=== PATIENT | female | born 1980 | race Caucasian/White ===

== ENCOUNTER 2019-11-08 07:54 | Day surgery (SDC) | payer OTHER ==
[~2019-11-08] VITALS: Ht 177.8 cm; Wt 250.0 kg
[~2019-11-08 07:54] MED LIST: CYAN50LO PO; DIAZ5TAB PO; HYDR200T72 PO; VIT D PO
[2019-11-08 08:35] VITALS: BP 141/82
[2019-11-08] MEDS ORDERED: LACTATED RINGERS 1,000 ML IV SCH (10:00)
[2019-11-08] MEDS ORDERED: OXYTOCIN 10 UNITS/ML, 1ML ONE (13:22)
[2019-11-08] MEDS ORDERED: MISOPROSTOL 200 MCG TABLET ONE (13:23)
[2019-11-08] MEDS ORDERED: METHYLERGONOVINE 0.2 MG/ML IM ONE (13:23)
[2019-11-08] MEDS ORDERED: SILVER NITRATE STICK TP ONE (13:24)
[2019-11-08] MEDS ORDERED: FENTANYL PF 100 MCG/2ML ONE (13:40)
[2019-11-08] MEDS ORDERED: MIDAZOLAM 1 MG/ML, 2ML ONE (13:40)
[2019-11-08] MEDS ORDERED: HYDROmorphone 2 MG/ML, 1ML IVPush PRN (14:30)
[2019-11-08] MEDS ORDERED: ACETAMINOPHEN 325 MG TABLET PO PRN (14:30)
[2019-11-08] MEDS ORDERED: DIAZEPAM 5 MG/ML, 2ML IVPush PRN (14:30)
[2019-11-08] MEDS ORDERED: PROMETHAZINE 25 MG/ML, 1ML IV PRN (14:30)
[2019-11-08] MEDS ORDERED: LABETALOL 5MG/ML, 20ML IV PRN (14:30)
[2019-11-08] MEDS ORDERED: hydrALAzine 20 MG/ML, 1ML IV PRN (14:30)
[2019-11-08] MEDS ORDERED: FENTANYL PF 100 MCG/2ML IV PRN (14:30)
[2019-11-08] MEDS ORDERED: ALBUTEROL SULFATE 2.5 MG/3 ML NPPB PRN (14:30)
[2019-11-08] MEDS ORDERED: KETOROLAC 30 MG/1 ML IV PRN ×2 (14:30→16:00)
[2019-11-08] MEDS ORDERED: MEPERIDINE/PF 25MG/0.5ML IVPush PRN (14:30)
[2019-11-08] MEDS ORDERED: OXYcodone 5 MG/5 ML ORAL.SOL UDC PO PRN (14:30)
[2019-11-08] MEDS ORDERED: ROCURONIUM 10MG/ML,5ML ONE (14:37)
[2019-11-08] MEDS ORDERED: ONDANSETRON 2MG/ML, 2ML ONE (14:37)
[2019-11-08] MEDS ORDERED: SUCCINYLCHOLINE 20 MG/ML, 10ML ONE (14:37)
[2019-11-08] MEDS ORDERED: GLYCOPYRROLATE 0.2MG/1ML, 5ML ONE (14:37)
[2019-11-08] MEDS ORDERED: PROPOFOL 10 MG/ML, 20ML ONE (14:37)
[2019-11-08] MEDS ORDERED: DEXAMETHASONE 4 MG/ML, 1ML ONE (14:37)
[2019-11-08] MEDS ORDERED: NEOSTIGMINE 1 MG/ML, 10ML ONE (14:37)
[2019-11-08] MEDS ORDERED: CEFAZOLIN 1,000 MG ONE (14:37)
[2019-11-08 15:35] VITALS: BP 110/78
[2019-11-08] MEDS ORDERED: PROMETHAZINE 25 MG SUPP PR ONE (16:00)
[2019-11-08] MEDS ORDERED: HYDROmorphone 1 MG/ML, 1ML INJ IV PRN (16:00)
[2019-11-08] MEDS ORDERED: OXYcodone/APAP 5/325MG TABLET PO PRN (16:00)
== END 2019-11-08 16:38 | disposition home or self-care (01) ==
LOC: OR 07:54 → 4NE 08:12 → UNDOADMIN 08:12 → UNDODISIN 16:38 → OR 16:38
PROVIDERS: ATTEND Obstetrics & Gynecology
DX: O03.4 Incomplete spontaneous abortion without complication (principal); Z11.59 Encounter for screening for other viral diseases; M32.9 Systemic lupus erythematosus, unspecified; F32.9 Major depressive disorder, single episode, unspecified; Z79.899 Other long term (current) drug therapy; Z88.8 Allergy status to other drugs, medicaments and biological substances; Z91.040 Latex allergy status; Z90.49 Acquired absence of other specified parts of digestive tract; Z98.890 Other specified postprocedural states; Z83.3 Family history of diabetes mellitus; Z82.49 Family history of ischemic heart disease and other diseases of the circulatory system
CPT/HCPCS: 58300; 59812; 76998; 88305; J0690; J1100; J2250; J2405; J2704; J3010; J7120; J7298; U0001; G0378; J2710; J0330; J2210; J2590